=== PATIENT | female | born 1960 | race Caucasian/White ===

== ENCOUNTER 2024-02-07 16:52 | Inpatient (IN) | payer OTHER ==
[~2024-02-07] VITALS: Ht 167.6 cm; Wt 119.2 kg
[2024-02-07 18:44] LABS: BASO # 0.1 10^3/uL (0.0-0.2); BASO % 0.6 % (0.0-1.0); EOS % 0.1 % (0.0-3.0); HEMATOCRIT 37.6 % (36.0-47.0); HEMOGLOBIN 12.6 g/dl (12.0-15.5); LYMPH # 1.2 10^3/uL (1.5-5.0); LYMPH % 12.9 % (24.0-44.0); MEAN CORPUSCULAR HGB CONC 33.5 g/dl (32.0-36.5); MEAN CORPUSCULAR VOLUME 92.6 fl (80.0-96.0); MONO # 0.8 10^3/uL (0.0-0.8); NEUTROPHILS % 77.1 % (36.0-66.0); PLATELET COUNT, AUTOMATED 188 10^3/uL (150-450); RED BLOOD COUNT 4.06 10^6/uL (4.00-5.40)
[2024-02-07 19:17] LABS: RSV AMPLIFICATION NEGATIVE (NEGATIVE)
[2024-02-07 19:18] LABS: ALBUMIN 3.4 G/DL (3.2-5.2); BILIRUBIN,DIRECT 0.3 MG/DL (<0.4); CALCIUM LEVEL 8.6 MG/DL (8.3-10.6); CREATININE FOR GFR 1.37 MG/DL (0.55-1.30); GLOMERULAR FILTRATION RATE 41.7 (>45); POTASSIUM SERUM 3.8 MMOL/L (3.5-5.1); TOTAL PROTEIN 6.6 G/DL (5.7-8.2)
[2024-02-07] MEDS: cefTRIAXone SOD 2 GM in D5W MINI-BAG PLUS 50 ML IV ONE (19:20)
[2024-02-07] MEDS: NS IV ONE (19:20)
[2024-02-07 19:30] LABS: PROCALCITONIN 0.5 ng/ml
[2024-02-07] MEDS ORDERED: ISOVUE-370 76% 100ML VIAL As Ordered ONE (19:31)
[2024-02-07 19:39] LABS: CK-MB VALUE MASS 1.5 NG/ML (<3.6)
[2024-02-07 19:40] LABS: MB/CK RELATIVE INDEX 0.36 (< OR =4)
[2024-02-07] MEDS ORDERED: ATOR1TAB21 PO (21:23)
[2024-02-07] MEDS ORDERED: ACET-907 PO (21:23)
[2024-02-07] MEDS ORDERED: BUPR150T12 PO (21:23)
[2024-02-07] MEDS ORDERED: SYNT150T PO (21:23)
[2024-02-07] MEDS ORDERED: DOCU100C16 PO (21:23)
[2024-02-07] MEDS ORDERED: OMEP1CAP73 PO (21:23)
[2024-02-07] MEDS ORDERED: HOME MED LIST COMPLETE! XX SCH (21:25)
[2024-02-07] MEDS: ACETAMINOPHEN TAB 650MG DOSE (2X325MG) PO ONE (21:52)
[2024-02-07] MEDS ORDERED: ONDANSETRON 4MG 2ML VIAL IV PRN (22:45)
[2024-02-07] MEDS: DOCUSATE SODIUM 100MG CAPSULE PO SCH (22:58)
[2024-02-07 23:31] LABS: AMPHETAMINES LEVEL URINE NEGATIVE (NEGATIVE); BARBITURATES URINE NEGATIVE (NEGATIVE); BENZODIAZEPINES URINE NEGATIVE (NEGATIVE); COCAINE METABOLITE URINE NEGATIVE (NEGATIVE)
[2024-02-07 23:32] LABS: CANNABINOIDS URINE NEGATIVE (NEGATIVE); METHADONE URINE NEGATIVE (NEGATIVE); OPIATES URINE NEGATIVE (NEGATIVE); PHENCYCLIDINE URINE NEGATIVE (NEGATIVE)
[2024-02-07] MEDS: OMEPRAZOLE 20MG CAP PO SCH (23:32)
[2024-02-07] MEDS: buPROPion **XL** TABLET 150MG (WELLBUTRIN XL) PO SCH (23:32)
[2024-02-07] MEDS: LR 1,000 ML IV SCH (23:33)
[2024-02-08] MEDS: NS 1,000 ML IV ONE ×2 (00:07→01:06)
[2024-02-08 06:52] LABS: CALCIUM LEVEL 7.4 MG/DL (8.3-10.6); CREATININE FOR GFR 1.15 MG/DL (0.55-1.30); GLOMERULAR FILTRATION RATE 51.1 (>45); POTASSIUM SERUM 3.7 MMOL/L (3.5-5.1)
[2024-02-08 07:24] LABS: BASO % 0.3 % (0.0-1.0); EOS % 0.2 % (0.0-3.0); HEMOGLOBIN 11.9 g/dl (12.0-15.5); LYMPH % 11.8 % (24.0-44.0); MEAN CORPUSCULAR HEMOGLOBIN 30.9 pg (27.0-33.0); MEAN CORPUSCULAR HGB CONC 33.1 g/dl (32.0-36.5); MEAN CORPUSCULAR VOLUME 93.5 fl (80.0-96.0); MONO # 0.6 10^3/uL (0.0-0.8); MONO % 7.1 % (2.0-8.0); NEUTROPHILS # 6.9 10^3/uL (1.5-8.5); RED BLOOD COUNT 3.85 10^6/uL (4.00-5.40); WHITE BLOOD COUNT 8.7 10^3/uL (4.0-10.0)
[2024-02-08] MEDS: HEPARIN SOD (PORCINE) 5000UNITS/ML 1ML VIAL/SYRINGE SC SCH (08:32)
[2024-02-08] MEDS: LEVOTHYROXINE 150MCG TABLET (0.15MG) PO SCH (08:59)
[2024-02-08 10:11] LABS: MAGNESIUM LEVEL 1.8 MG/DL (1.8-2.4)
[2024-02-08 10:20] LABS: PROCALCITONIN 1.58 ng/ml
[2024-02-08 11:38] VITALS: BP 126/69; TEMP 98.1; O2SAT 96
[2024-02-08 15:43] VITALS: BP 114/60; TEMP 99.7; O2SAT 94
[2024-02-08] MEDS: cefTRIAXone SOD 2 GM in D5W MINI-BAG PLUS 50 ML IV SCH (18:49)
[2024-02-08 19:41] VITALS: BP 120/75; TEMP 101; O2SAT 97
[2024-02-08] MEDS: ACETAMINOPHEN TAB 650MG DOSE (2X325MG) PO PRN (19:46)
[2024-02-08] MEDS ORDERED: cefTRIAXone SOD 1 GM in D5W MINI-BAG PLUS 50 ML IV SCH (20:00)
[2024-02-08 23:27] VITALS: BP 120/69; TEMP 99.4; O2SAT 92
[2024-02-09 03:45] VITALS: BP 123/73; TEMP 98.6; O2SAT 97
[2024-02-09 06:19] LABS: BASO % 0.6 % (0.0-1.0); EOS # 0.1 10^3/uL (0.0-0.5); EOS % 1.1 % (0.0-3.0); HEMATOCRIT 33.2 % (36.0-47.0); LYMPH # 1.4 10^3/uL (1.5-5.0); MEAN CORPUSCULAR HEMOGLOBIN 30.8 pg (27.0-33.0); MEAN CORPUSCULAR HGB CONC 33.1 g/dl (32.0-36.5); MONO # 0.6 10^3/uL (0.0-0.8); MONO % 8.9 % (2.0-8.0); NEUTROPHILS # 4.4 10^3/uL (1.5-8.5); NEUTROPHILS % 67.9 % (36.0-66.0); PLATELET COUNT, AUTOMATED 177 10^3/uL (150-450); RED BLOOD COUNT 3.57 10^6/uL (4.00-5.40); WHITE BLOOD COUNT 6.4 10^3/uL (4.0-10.0)
[2024-02-09 06:45] LABS: CREATININE FOR GFR 1.08 MG/DL (0.55-1.30); GLOMERULAR FILTRATION RATE 54.9 (>45); MAGNESIUM LEVEL 1.9 MG/DL (1.8-2.4); POTASSIUM SERUM 3.5 MMOL/L (3.5-5.1)
[2024-02-09 07:29] VITALS: BP 145/83; TEMP 98; O2SAT 95
[2024-02-09] MEDS: POTASSIUM CHLORIDE 10MEQ SR TABLET PO ONE (08:30)
[2024-02-09] MEDS: CEFDINIR 300 MG CAP (OMNICEF) PO SCH (11:24)
[2024-02-09 12:09] VITALS: BP 146/77; TEMP 97.9; O2SAT 96
[2024-02-09 16:25] VITALS: BP 119/71; TEMP 97.9; O2SAT 95
[2024-02-09] MEDS: ATORVASTATIN 20 MG TAB PO SCH (21:17)
[2024-02-09 21:20] VITALS: BP 130/76; TEMP 98.4; O2SAT 95
[2024-02-10 04:15] VITALS: BP 138/79; TEMP 98.9; O2SAT 94
[2024-02-10 06:59] LABS: BASO % 0.7 % (0.0-1.0); EOS # 0.1 10^3/uL (0.0-0.5); EOS % 1.7 % (0.0-3.0); HEMATOCRIT 34.1 % (36.0-47.0); HEMOGLOBIN 11.4 g/dl (12.0-15.5); LYMPH # 1.3 10^3/uL (1.5-5.0); LYMPH % 24.2 % (24.0-44.0); MEAN CORPUSCULAR HEMOGLOBIN 30.7 pg (27.0-33.0); MEAN CORPUSCULAR HGB CONC 33.4 g/dl (32.0-36.5); MEAN CORPUSCULAR VOLUME 91.9 fl (80.0-96.0); MONO # 0.4 10^3/uL (0.0-0.8); MONO % 7.8 % (2.0-8.0); NEUTROPHILS # 3.5 10^3/uL (1.5-8.5); PLATELET COUNT, AUTOMATED 212 10^3/uL (150-450); RED BLOOD COUNT 3.71 10^6/uL (4.00-5.40); WHITE BLOOD COUNT 5.4 10^3/uL (4.0-10.0)
[2024-02-10 07:26] LABS: BLOOD UREA NITROGEN < 5 MG/DL (9-23); CALCIUM LEVEL 8.4 MG/DL (8.3-10.6); CARBON DIOXIDE LEVEL 26 MMOL/L (20-31); CHLORIDE LEVEL 108 MMOL/L (98-107); CREATININE FOR GFR 1.05 MG/DL (0.55-1.30); GLOMERULAR FILTRATION RATE 56.7 (>45); GLUCOSE, FASTING 100 MG/DL (74-106); MAGNESIUM LEVEL 1.8 MG/DL (1.8-2.4); POTASSIUM SERUM 3.5 MMOL/L (3.5-5.1); SODIUM LEVEL 143 MMOL/L (136-145)
[2024-02-10 07:47] VITALS: BP 130/80; TEMP 97.7; O2SAT 91
[2024-02-10] MEDS ORDERED: PROBCAP14 PO (10:05)
[2024-02-10] MEDS ORDERED: CEFD300CAP PO (10:05)
== END 2024-02-10 13:26 | disposition home or self-care (01) | DRG 720 ==
LOC: EDBD 16:52 → M ED 16:52 → M ED INP 22:45 → UNDOADMIN 22:45 → ENRESERV 23:38 → M PCU 02-08 11:30
PROVIDERS: ADMIT Internal Medicine; ATTEND Internal Medicine
DX: A41.51 Sepsis due to Escherichia coli [E. coli] (principal); N17.9 Acute kidney failure, unspecified; M62.82 Rhabdomyolysis; Z68.41 Body mass index [BMI] 40.0-44.9, adult; E66.01 Morbid (severe) obesity due to excess calories; N10 Acute pyelonephritis; E03.9 Hypothyroidism, unspecified; F32.A Depression, unspecified; R65.20 Severe sepsis without septic shock; E78.5 Hyperlipidemia, unspecified; K21.9 Gastro-esophageal reflux disease without esophagitis; Z87.442 Personal history of urinary calculi; Z79.890 Hormone replacement therapy; Z79.899 Other long term (current) drug therapy; Z88.1 Allergy status to other antibiotic agents; Z88.5 Allergy status to narcotic agent